=== PATIENT | male | born 1975 | race African-American/Black ===

== ENCOUNTER 2022-01-02 09:05 | Emergency (ER) | payer MEDICARE ==
[~2022-01-02] VITALS: Ht 175.3 cm; Wt 80.0 kg
[2022-01-02 09:12] VITALS: BP 110/72
== END 2022-01-02 10:40 | disposition home or self-care (01) ==
LOC: ER 09:46
DX: R19.7 Diarrhea, unspecified (principal); Z88.5 Allergy status to narcotic agent; Z88.6 Allergy status to analgesic agent; Z98.890 Other specified postprocedural states
CPT/HCPCS: 99281